=== PATIENT | female | born 1990 | race Caucasian/White ===

== ENCOUNTER 2022-08-27 08:15 | Outpatient (CLI) | payer BC, SELFPAY ==
[2022-08-27] VITALS (18 sets, daily range): BP systolic 116; BP diastolic 55–73; PULSE 102–126; RESP 16; TEMP 36.8; O2SAT 97–100; BMI 45.5
[2022-08-27 09:42] LABS: Actim Prom Positive
--- NOTE | 2022-08-27 10:08 | PC.NURSE ---
THIS BUSINESS ANALYTICS SPECIALIST WAS ASKED TO DO VE AND SEE IF I COULD FEEL BAG OF WATER OR ANY LEAKING. THIS BUSINESS ANALYTICS SPECIALIST DID NOT USE LUBE AND VAGINAL VAULT APPEARED TO JUST MOIST FROM THE LUBE USED FROM PRIOR VAGINAL EXAM AND I WAS ABLE TO PUSH UP ON BABY AND GOT NO FLUID RETURN AND WHEN I PUSHED DOWN ON FUNDUS DID NOT GET ANY FLUID. NITRAZINE WAS NEGATIVE.
== END 2022-08-27 10:32 | disposition home or self-care (01) ==
LOC: OPOB 08:20 → OBGYN 08:21
PROVIDERS: Absent Provider Family Medicine; Visit Provider Family Medicine
DX: O36.8190 Decreased fetal movements, unspecified trimester, not applicable or unspecified (principal); Z3A.00 Weeks of gestation of pregnancy not specified; N89.8 Other specified noninflammatory disorders of vagina
CPT/HCPCS: 59025; 84112; 99211

== ENCOUNTER 2022-08-29 02:29 | Outpatient (CLI) | payer BC, SELFPAY ==
[2022-08-29] VITALS (20 sets, daily range): BP systolic 122–138; BP diastolic 65–80; PULSE 106–127; RESP 16; TEMP 36.2–36.4; O2SAT 97–100; BMI 45.5
== END 2022-08-29 03:55 | disposition home or self-care (01) ==
LOC: OPOB 02:29 → OBGYN 02:29
PROVIDERS: Visit Provider Family Medicine
DX: O26.899 Other specified pregnancy related conditions, unspecified trimester (principal); Z3A.00 Weeks of gestation of pregnancy not specified; N89.8 Other specified noninflammatory disorders of vagina; R10.9 Unspecified abdominal pain
CPT/HCPCS: 59025; 83986; 99211

== ENCOUNTER 2022-08-30 09:58 | Inpatient (IN) | payer BC, SELFPAY ==
[2022-08-30] VITALS (91 sets, daily range): BP systolic 100–168; BP diastolic 40–95; PULSE 86–120; RESP 16–18; TEMP 36.7–36.9; O2SAT 89–100; BMI 45.5
[2022-08-30] MEDS: lactated ringers 1,000 ML 999 ML IV (10:00)
--- NOTE | 2022-08-30 10:05 | P.HP_ITS ---
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 Patient has been having intermittent contractions over the last several days. Today the contractions got more intense and closer together so she came in to be evaluated. Was found to be 6 cm dilated and elena regularly. Patient is a repeat . First was due to failure to progress and the patient was told she would be unable to deliver vaginally. This has been unremarkable with no complications. Patient had normal labs. Patient did fail her initial glucose tolerance test but passed her 3-hour. Review of Systems General: Reports: 10 or more systems reviewed and unremarkable except in HPI and below Narrative: Patient reports contractions, good movement, bloody discharge. 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 PFSH: Surgical History (Updated 08/30/22 @ 10:10 by Mo Curran MD) Previous section History History History 2 Term 1 Miscarriages/Ectopic Living Children 1 Vitals/I&O/Wt Weight last 48 hrs Weight 116.573 kg Physical Exam Const: COMMON NORMALS: no acute distress and alert HENMT: COMMON NORMALS: normocephalic and moist oral mucous membranes Chest: COMMONS NORMALS: normal inspection of the chest Resp: COMMON NORMALS: normal respiratory effort and No retractions Cardio: COMMON NORMALS: no JVD, regular rate and regular rhythm Extremity: COMMON NORMALS: no clubbing, cyanosis or edema Neuro: COMMON NORMALS: moves all extremities Psych: COMMON NORMALS: mental status grossly normal and normal affect A&P Assessment and plan (1) Term : Patient appears to be preceding into active labor. We will plan on preceding with repeat lower transverse (2) Previous section: Secondary to failure to progress Attestations Medical Necessity Statement*: Anticipate greater than 2 midnight stay Coding Level of Care Code Acute Kitchen Assistant for Chg Fwd Diagnoses Term Z34.90 Previous section Z98.891
[2022-08-30] MEDS: famotidine 20 mg/2 mL INJ IVP ×2 (10:15→10:21)
[2022-08-30 10:16] LABS: Basophils % 0.2 %; Eosinophils % 0.3 %; Hematocrit 36.2 % (37.0-47.0); Hemoglobin 11.3 g/dL (11.5-15.3); Lymphocytes # 1.3 10^3/uL (0.8-4.8); Lymphocytes % 13.8 %; Mean Corpuscular HGB Conc 31.2 g/dL (30.0-36.0); Mean Corpuscular Volume 86.6 fl (81-99); Mean Platelet Volume 12.5 fL (7.4-10.4); Monocytes # 0.8 10^3/uL (0.2-0.9); Monocytes % 8.3 %; Neutrophils # 7.09 10^3/uL (1.8-7.7); Nucleated Red Blood Cells % 0 %; Platelet Count 223 10^3/cmm (130-400); Red Blood Count 4.18 10^6/uL (4.1-5.3); Red Cell Distribution Width 15.4 % (12.1-15.1); White Blood Count 9.2 10^3/uL (4.0-10.0)
[2022-08-30] MEDS: citric acid-sodium citrate 30 mL UDC PO (10:21)
[2022-08-30] MEDS: metoclopramide 5 mg/mL SDV 2 mL 10 MG IVP (10:21)
[2022-08-30] MEDS: clindamycin 900 MG/50 ML PREMIX 100 MG IV (10:40)
--- NOTE | 2022-08-30 12:09 | P.OP_ITS ---
Operative Report Date of procedure: August 30, 2022 Pre-op diagnosis: TIUP h/o previous Post-op diagnosis: same as above viable infant male Procedure done: RLTCS Surgeon: Dr. Avinash Curran All Around Gear Machine Operator: Dr. Schmitt Anesthesia: Epidural Estimated blood loss (mL): 700 Brief History: 32 y/o at 38w2d that presents in labor for RLTCS Procedure: Patient was taken to the operating room where epidural anesthesia was found to be adequate. She was prepped and draped in the normal sterile fashion in a dorsal supine position with a leftward tilt. Skin incision was made with scalpel and carried out to the underlying layer of fascia which was incised in the midline. Fascial incision was then extended laterally with Banerjee scissors bilaterally. The superior aspect of the fascial incision was grasped with Hero clamps elevated and dissected off the rectus muscles with Banerjee's. The inferior aspect of the fascial incision was grasped with Hero's and in likewise manner was elevated and dissected off with Banerjee's. Peritoneum was then entered digitally and extended with good visualization of the bladder. Bladder blade was then inserted. Bladder flap was created. Uterine incision was then created in a transverse fashion in the lower uterine segment with scalpel and extended digitally. Amniotic sac was a round with julio clamp. Clear fluid noted. 's head was delivered atraumatically nose and mouth suctioned with bulb, cord clamped and cut and handed off to waiting nursing staff. The placenta was then expressed and uterus exteriorized from the abdomen. And cleared of all clots and debris. Uterine incision was then repaired in a running locked fashion with 0 Vicryl. A second suture of the same was then used to imbricate the incision. Excellent hemostasis was noted. Uterus was then returned to the abdomen, gutters were cleared of all clots and debris and wound was irrigated. Peritoneum was then closed in a running fashion with 0 Vicryl. Fascia was then closed with 0 Vicryl in a running fashion. Subcutaneous tissue was closed with 2-0 Vicryl and skin was closed with 4-0 Monocryl on a Lyle needle. The incision was reinforced with Steri-Strips and pressure bandage was over the wound. Sponge, laps, and needle count was correct x2. 2 g Ancef was given prior to the procedure. Patient was taken recovery in stable condition.
--- NOTE | 2022-08-30 12:40 | P.ANESASSM_ITS ---
Pre-Anesthetic Assessment Height/Weight: Height 1.6 m Weight 116.573 kg Pulse BP 113 H 150/73 08/30/22 10:19 08/30/22 10:19 Preop Diagnosis: Previous C/S Operation Date: 09/06/22 07:00 Proposed Procedures p Section(Not Applicable) - Mo Curran MD Familial anesthetic complications: None Was Beta Arleen taken within 24 hours: N/A Was Clonidine taken within 24 hours: N/A Last intake: Liquid: 08/30 @ 0000 Solid: 08/29 @ 2029 Social No alcohol and No tobacco Exam alert, oriented x 3, clear to auscultation bilaterally and regular rate & rhythm Airway Submandibular: within normal limits Cervical ROM: within normal limits Mallampati: Class I Dentition: full History/ROS No significant history except as noted Pulmonary None reported CV/HEM None reported None reported Hepatic None reported GI Gastroesophageal Reflux Disease Metabolic Gestational DM [facility] None reported Neuropsych None reported Anesthetic Plan ASA status: 2 Anesthesia: Anesthesia Evaluation and Regional (specify below) (Spinal) Risk of > 500 ml blood loss (7ml/kg in children): Yes, adequate IV access and fluids planned Medications/Allergies Home Medications Medication Instructions Recorded Confirmed Last Taken Type 1 tab PO DAILY 08/29/22 08/29/22 08/28/22 History Allergies Allergy/AdvReac Type Severity Reaction Status Date / Time Cephalosporins Allergy ALGY-Anaphy Verified 08/29/22 02:50 laxis Penicillins Allergy ALGY-Anaphy Verified 08/29/22 02:50 laxis [facility] Anesthesia Surgical History (Updated 08/30/22 @ 10:10 by Mo Curran MD) Previous section Data Anesthesia 08/30/22 10:00 Short CBC 08/30/22 Range/Units 10:00 WBC 9.2 (4.0-10.0) 10^3/uL Hgb 11.3 L (11.5-15.3) g/dL Hct 36.2 L (37.0-47.0) % MCV 86.6 (81-99) fl Plt Count 223 (130-400) 10^3/cmm Neut % (Auto) 77.0 % Neut # (Auto) 7.09 (1.8-7.7) 10^3/uL Cardiac Studies: No Data to Display
[2022-08-30] MEDS: dextrose 5%-lactated ringers 1,000 ML 125 ML IV ×2 (12:55)
[2022-08-30] MEDS: lanolin oint 7 gm 1 APPLIC TOPICAL (13:31)
--- NOTE | 2022-08-30 14:42 | ANE.PACU2 ---
Inpatient post-anesthesia follow up: Airway intact: Yes Vital signs: Temperature 98.0 F Pulse Rate 110 Respiratory Rate 17 Blood Pressure 109/62 Pulse Oximetry 98 Oxygen Delivery Me thod Room Air Oxygen Flow Rate Fraction of Inspir ed Oxygen Hydration adequate: Yes Nausea and vomiting: No Pain level: 1 Mental status: Baseline
[2022-08-30] MEDS: ketorolac 30 mg/mL INJ IVP ×2 (15:41→19:22)
[2022-08-30] MEDS: ferrous sulfate EC 325 mg Tablet PO (17:43)
[2022-08-30] MEDS: docusate sodium 100 mg Capsule PO (17:43)
[2022-08-30] MEDS: HYDROcodone-acetaminophen 5-325 mg Tablet PO (17:43)
[2022-08-30] MEDS: dextrose 5%-lactated ringers 1,000 ML 999 ML IV (20:48)
[2022-08-31] VITALS (7 sets, daily range): BP systolic 113–138; BP diastolic 56–89; PULSE 86–112; RESP 16; TEMP 35.9–36.5
[2022-08-31] MEDS: HYDROcodone-acetaminophen 5-325 mg Tablet PO ×3 (00:04→16:44)
[2022-08-31 00:19] LABS: Hematocrit 27.3 % (37.0-47.0); Hemoglobin 8.5 g/dL (11.5-15.3); Mean Corpuscular HGB Conc 31.1 g/dL (30.0-36.0); Mean Corpuscular Hemoglobin 27.3 pg (28.0-34.0); Mean Corpuscular Volume 87.8 fl (81-99); Mean Platelet Volume 12.7 fL (7.4-10.4); Platelet Count 177 10^3/cmm (130-400); Red Blood Count 3.11 10^6/uL (4.1-5.3); Red Cell Distribution Width 15.5 % (12.1-15.1); White Blood Count 8.4 10^3/uL (4.0-10.0)
[2022-08-31] MEDS: ketorolac 30 mg/mL INJ IVP ×2 (01:31→07:19)
[2022-08-31] MEDS: dextrose 5%-lactated ringers 1,000 ML 125 ML IV (02:10)
[2022-08-31] MEDS: prenatal vitamin Capsule 1 CAP PO (07:19)
[2022-08-31] MEDS: docusate sodium 100 mg Capsule PO ×2 (07:19→21:01)
[2022-08-31] MEDS: ferrous sulfate EC 325 mg Tablet PO ×2 (07:19→21:01)
--- NOTE | 2022-08-31 07:36 | P.PN_ITS ---
GATE SHEAR OPERATOR Subjective Subjective: Interval history: 32-year-old G2, P2 that is postop day 1 after repeat lower transverse . Patient reports no concerns this morning. Patient feels that breast-feeding is going well. Patient states that her pain is well controlled. Urine output has been adequate overnight. Labor: Station: -3 Amniotic Membrane Status: Unknown Monitor Mode: External Contraction Pattern: Irregular Vitals/I&O/Wt Last Vital Signs Temp 98.3 F 08/30/22 22:23 Pulse 86 08/31/22 03:40 Resp 16 08/31/22 03:42 BP 113/56 08/31/22 03:40 Pulse Ox 99 08/30/22 17:42 O2 Del Method 08/30/22 16:58 08/30/22 08/31/22 08/31/22 22:59 06:59 14:59 Intake Total 2617.050 / 3716.050 383.95 / 4100.000 Output Total 185 / 415 275 / 690 200 / 200 Balance 2432.050 / 3301.050 108.95 / 3410.000 -200 / -200 Weight last 48 hrs Weight 116.573 kg Physical Exam Const: COMMON NORMALS: no acute distress and alert HENMT: COMMON NORMALS: normocephalic and moist oral mucous membranes HEAD & SCALP: normocephalic Neck/C-Spine: COMMON NORMALS: no JVD Chest: COMMONS NORMALS: normal inspection of the chest Resp: COMMON NORMALS: normal respiratory effort and No retractions Cardio: COMMON NORMALS: no JVD, regular rate and regular rhythm RATE: regular rate RHYTHM: regular rhythm Extremity: COMMON NORMALS: no clubbing, cyanosis or edema Neuro: COMMON NORMALS: moves all extremities SENSORIUM/ORIENTATION: Yes alert Psych: COMMON NORMALS: mental status grossly normal and normal affect Skin: WOUNDS: Yes surgical site (Clean dry and intact.) Details: no odor Urinary Catheter Management: Ward: Cath Placed During This Visit: yes Reason for Continuing Indwelling Catheter: Other Urinary Catheter Date of Insertion: 08/30/22 Urinary Catheter Time of Insertion: 11:50 Data 08/31/22 00:02 A&P Assessment and plan (1) Status post delivery: Continue with routine care. Ward catheter removed. The patient is to get up out of bed today. Attestations Medical Necessity Statement*: Anticipate discharge tomorrow. Coding Level of Care Code Acute Methods Specialist for Chg Fwd Diagnoses Status post delivery Z98.891
[2022-08-31] MEDS: ibuprofen 800 mg tablet PO ×2 (14:24→21:01)
[2022-09-01] MEDS: HYDROcodone-acetaminophen 5-325 mg Tablet PO ×2 (04:08→09:32)
[2022-09-01 04:40] VITALS: BP 125/76; PULSE 88; RESP 18; TEMP 36.2; O2SAT 97
--- NOTE | 2022-09-01 08:21 | P.DS_ITS ---
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 Patient was found to be 6 cm dilated, so the patient was set up for a repeat low-transverse . Patient underwent without complication. There are no complications post surgery. Patient is care was unremarkable. Information Peripartum Data: Delivery Method: Physical Exam Const: COMMON NORMALS: no acute distress and alert HENMT: COMMON NORMALS: normocephalic and moist oral mucous membranes HEAD & SCALP: normocephalic Neck/C-Spine: COMMON NORMALS: no JVD Chest: COMMONS NORMALS: normal inspection of the chest Resp: COMMON NORMALS: normal respiratory effort and No retractions Cardio: COMMON NORMALS: no JVD, regular rate and regular rhythm RATE: regular rate RHYTHM: regular rhythm Extremity: COMMON NORMALS: no clubbing, cyanosis or edema Neuro: COMMON NORMALS: moves all extremities SENSORIUM/ORIENTATION: Yes alert Psych: COMMON NORMALS: mental status grossly normal and normal affect Skin: WOUNDS: Yes surgical site (Clean dry and intact.) Details: no odor Urinary Catheter Management: Ward: Cath Placed During This Visit: yes, but has since been removed by the nurse Reason for Continuing Indwelling Catheter: Not indwelling catheter Urinary Catheter Date of Insertion: 08/30/22 Urinary Catheter Time of Insertion: 11:50 Date Urinary Catheter Removed: 08/31/22 Time Urinary Catheter Discontinued: 07:47 History History History 2 Term 2 Miscarriages/Ectopic Living Children 2 Discharge Data Studies Completed and Pending Laboratory Results WBC 8.4 10^3/uL (4.0-10.0) 08/31/22 00:02 RBC 3.11 10^6/uL (4.1-5.3) L 08/31/22 00:02 Hgb 8.5 g/dL (11.5-15.3) L 08/31/22 00:02 Hct 27.3 % (37.0-47.0) L 08/31/22 00:02 MCV 87.8 fl (81-99) 08/31/22 00:02 MCH 27.3 pg (28.0-34.0) L 08/31/22 00:02 MCHC 31.1 g/dL (30.0-36.0) 08/31/22 00:02 RDW 15.5 % (12.1-15.1) H 08/31/22 00:02 Plt Count 177 10^3/cmm (130-400) 08/31/22 00:02 MPV 12.7 fL (7.4-10.4) H 08/31/22 00:02 Neut % (Auto) 77.0 % 08/30/22 10:00 Lymph % (Auto) 13.8 % 08/30/22 10:00 [place] % (Auto) 8.3 % 08/30/22 10:00 Eos % (Auto) 0.3 % 08/30/22 10:00 Baso % (Auto) 0.2 % 08/30/22 10:00 Neut # (Auto) 7.09 10^3/uL (1.8-7.7) 08/30/22 10:00 Lymph # (Auto) 1.3 10^3/uL (0.8-4.8) 08/30/22 10:00 [place] # (Auto) 0.8 10^3/uL (0.2-0.9) 08/30/22 10:00 Eos # (Auto) 0.0 10^3/uL (0.0-0.8) 08/30/22 10:00 Baso # (Auto) 0.0 10^3/uL (0.0-0.1) 08/30/22 10:00 Nucleated RBC % (auto) 0 % 08/30/22 10:00 Nucleated RBCs # 0.0 /100WBC 08/30/22 10:00 Vitals Last Vital Signs Temp 97.1 F L 09/01/22 04:40 Pulse 88 09/01/22 04:40 Resp 18 09/01/22 04:40 BP 125/76 09/01/22 04:40 Pulse Ox 97 09/01/22 04:40 O2 Del Method 09/01/22 04:40 Discharge Plan Discharge Patient Disposition: Home Condition: Stable Prescriptions: New hydrocodone-acetaminophen 5-325 mg Tablet 1 - 2 tab PO Q4H PRN (Reason: Moderate To Severe Pain) Qty: 20 0RF Continued 1 tab PO DAILY Discharge Orders: Discharge Order (Routine); Ordered 09/01/22 Ordered By: Mo Curran Referrals: Mo Curran MD [Physician] - () Discharge Diet: Usual diet Discharge Activity: Limit activity as instructed Patient Instructions: Depression (DC), Bleeding (DC), Preeclampsia and Eclampsia After Delivery (GEN), OB - Flex/Osmin, OB Discharge Report, OB Food/Drug Interaction Guide, OB Care at Home, Opioid Safety Discharge Attestations PORCELAIN FINISHER Time Spent in Discharge Care*: less than 30 min Coding Level of Care Code Acute Rubber Flap Tuber Machine Operator for Chg Fwd Diagnoses Status post delivery Z98.891
[2022-09-01] MEDS: ibuprofen 800 mg tablet PO (09:32)
[2022-09-01] MEDS: docusate sodium 100 mg Capsule PO (09:32)
[2022-09-01 10:25] VITALS: BP 134/90; PULSE 105; TEMP 36.4
[2022-09-01 12:00] VITALS: BP 134/90; PULSE 105; RESP 16; TEMP 36.4
== END 2022-09-01 12:04 | disposition home or self-care (01) | DRG 788 ==
PROVIDERS: Admitting Provider Family Medicine; Visit Provider Family Medicine
PROC: 10D00Z1 Extraction of Products of Conception, Low, Open Approach (ICD-10-PCS; CPT 59514; principal; 2022-08-30 10:20)
DX: O34.211 Maternal care for low transverse scar from previous cesarean delivery (principal); Z3A.38 38 weeks gestation of pregnancy; Z37.0 Single live birth
CPT/HCPCS: 36415; 51702; 59025; 59409; 85025; 85027; 96374; 96376; 98960; 99211; J1885; J2274; J2765; J3010; J3490; J7120; J7121

== ENCOUNTER → 2023-04-12 10:10 | Outpatient (BNVA) | payer BC, SELFPAY | PROVIDERS: PCP Family Medicine; Visit Provider Internal Medicine Rheumatology | DX: Z79.899 Other long term (current) drug therapy (principal); M19.90 Unspecified osteoarthritis, unspecified site; Z11.1 Encounter for screening for respiratory tuberculosis; Z11.59 Encounter for screening for other viral diseases | CPT/HCPCS: 36415; 80053; 82306; 85025; 85651; 86038; 86200; 86431; 86480; 86704; 86803; 87340 ==